=== PATIENT | female | born 1990 | race Caucasian/White ===

== ENCOUNTER 2016-05-18 00:05 | Observation (INO) | payer MEDICAID ==
[~2016-05-18 00:05] MED LIST: IBUP800T PO; IRON1TAB60 PO; ONDA4TAB10 PO; OXYC-302 PO; PREN1TAB52 PO; SENN8.6C2 PO
== END 2016-05-18 02:42 | disposition home or self-care (01) ==
LOC: LDOP 00:05 → LDIP 02:05
PROVIDERS: ADMIT Obstetrics & Gynecology; ATTEND Obstetrics & Gynecology
DX: O42.90 Premature rupture of membranes, unspecified as to length of time between rupture and onset of labor, unspecified weeks of gestation (principal); O26.899 Other specified pregnancy related conditions, unspecified trimester; M54.5 Low back pain; Z3A.00 Weeks of gestation of pregnancy not specified
CPT/HCPCS: 36415; 59025; 82731; 87086; 89060; G0378; 99211; G0463; Q0114

== ENCOUNTER 2016-07-30 17:05 | Outpatient (CLI) | payer MEDICAID ==
[~2016-07-30] VITALS: Ht 157.5 cm; Wt 161.0 kg
[2016-07-30 17:39] VITALS: BP 110/62
[2016-07-30 17:52] LABS: AMNI OBC PASS; AMNISURE NEGATIVE (NEGATIVE)
== END 2016-07-30 18:27 | disposition home or self-care (01) ==
LOC: LDOP 17:05
PROVIDERS: ATTEND Obstetrics & Gynecology
DX: O42.92 Full-term premature rupture of membranes, unspecified as to length of time between rupture and onset of labor (principal); O62.9 Abnormality of forces of labor, unspecified; Z3A.36 36 weeks gestation of pregnancy
CPT/HCPCS: 59025; 84112; 87081; 99211; G0463

== ENCOUNTER 2016-08-20 18:14 | Inpatient (IN) | payer MEDICAID ==
[~2016-08-20 18:14] MED LIST changes: +CEFAZOLIN 1,000 MG ONE; +EPHEDRINE 50 MG/ML, 1ML ONE; +ONDANSETRON 2MG/ML, 2ML ONE; +PHENYLEPHRINE 10 MG/ML ONE
[2016-08-20] MEDS ORDERED: LACTATED RINGERS 1,000 ML IV SCH ×2 (19:28→19:30)
[2016-08-20] MEDS ORDERED: OXYTOCIN 30U/ 0.9% NaCL 500ML 500 ML IV SCH (19:28)
[2016-08-20] MEDS ORDERED: LACTATED RINGERS 1,000 ML IVBOLUS ONE (19:30)
[2016-08-20] MEDS ORDERED: NEWBORN KIT ONE (19:47)
[2016-08-20] MEDS ORDERED: FENTANYL PF 100 MCG/2ML IV PRN (20:00)
[2016-08-20] MEDS: PLEASE ENTER HEIGHT AND WEIGHT MC SCH (20:00)
[2016-08-20] MEDS ORDERED: FENTANYL PF 100 MCG/2ML ONE ×2 (20:00→21:20)
[2016-08-20] MEDS: FENTANYL PF 100 MCG/2ML IVPush PRN ×2 (20:04→21:27)
[2016-08-20] MEDS ORDERED: SODIUM CITRATE/CITRIC ACID 30 ML UDC ONE (22:04)
[2016-08-20] MEDS ORDERED: METOCLOPRAMIDE 5 MG/ML, 2ML ONE (22:04)
[2016-08-20] MEDS ORDERED: MEPERIDINE/PF 50 MG/ML ONE ×2 (22:41→22:43)
[2016-08-20] MEDS ORDERED: MISOPROSTOL 200 MCG TABLET PR PRN (23:30)
[2016-08-20] MEDS ORDERED: METHYLERGONOVINE 0.2 MG/ML IM PRN (23:30)
[2016-08-20] MEDS ORDERED: ACETAMINOPHEN 325 MG TABLET PO PRN (23:30)
[2016-08-20] MEDS ORDERED: ONDANSETRON 2MG/ML, 2ML IV PRN (23:30)
[2016-08-20] MEDS ORDERED: CALCIUM CARBONATE 500 MG TAB.CHEW PO PRN (23:30)
[2016-08-20] MEDS ORDERED: CARBOPROST TROMETHAMINE 250 MCG/ML, 1ML IM PRN (23:30)
[2016-08-20] MEDS ORDERED: BISACODYL 10 MG SUPP PR PRN (23:30)
[2016-08-20] MEDS ORDERED: morphine SULFATE 10 MG/ML, 1ML IVPush PRN ×2 (23:30)
[2016-08-20] MEDS ORDERED: OXYTOCIN 30U/ 0.9% NaCL 500ML 500 ML ONE (23:30)
[2016-08-21] MEDS ORDERED: OXYcodone 5 MG/5 ML ORAL.SOL UDC ONE (01:12)
[2016-08-21] MEDS ORDERED: OXYcodone 5 MG/5 ML ORAL.SOL UDC PO PRN (01:14)
[2016-08-21 01:50] VITALS: BP 112/71
[2016-08-21] MEDS: OXYcodone/APAP 5/325MG TABLET PO PRN ×4 (02:18→18:10)
[2016-08-21] MEDS: LACTATED RINGERS 1,000 ML IV SCH ×7 (03:17→23:18)
[2016-08-21] MEDS: OXYTOCIN 30U/ 0.9% NaCL 500ML 500 ML IV SCH ×3 (03:18→19:18)
[2016-08-21] MEDS: PLEASE ENTER HEIGHT AND WEIGHT MC SCH (04:00)
[2016-08-21 05:25] VITALS: BP 103/67
[2016-08-21] MEDS ORDERED: PRENATAL VIT/IRON/FA 1 EACH TABLET ONE (07:44)
[2016-08-21] MEDS: DOCUSATE 100 MG CAPSULE PO PRN (07:49)
[2016-08-21] MEDS: IBUPROFEN 600 MG TABLET PO PRN ×2 (07:49→13:55)
[2016-08-21] MEDS: PRENATAL VIT/IRON/FA 1 EACH TABLET PO SCH (07:49)
[2016-08-21 07:50] VITALS: BP 116/72
[2016-08-21 12:00] VITALS: BP 96/58
[2016-08-21 16:00] VITALS: BP 94/50
[2016-08-21 19:30] VITALS: BP 105/68
[2016-08-22 00:35] VITALS: BP 135/75
[2016-08-22] MEDS: SIMETHICONE 80 MG CHEW TAB PO PRN ×2 (00:35→19:42)
[2016-08-22] MEDS: OXYcodone/APAP 5/325MG TABLET PO PRN ×4 (00:35→19:42)
[2016-08-22] MEDS: IBUPROFEN 600 MG TABLET PO PRN ×4 (00:35→21:24)
[2016-08-22] MEDS: DOCUSATE 100 MG CAPSULE PO PRN ×3 (00:35→19:42)
[2016-08-22] MEDS: LACTATED RINGERS 1,000 ML IV SCH ×5 (06:32→23:18)
[2016-08-22] MEDS: OXYTOCIN 30U/ 0.9% NaCL 500ML 500 ML IV SCH ×2 (06:32→15:18)
[2016-08-22 07:40] VITALS: BP 136/96
[2016-08-22] MEDS: PRENATAL VIT/IRON/FA 1 EACH TABLET PO SCH (07:43)
[2016-08-22 19:50] VITALS: BP 114/77
[2016-08-22] MEDS ORDERED: IBUP-1222 PO (23:44)
[2016-08-22] MEDS ORDERED: OXYC-302 PO (23:45)
[2016-08-23] MEDS: OXYTOCIN 30U/ 0.9% NaCL 500ML 500 ML IV SCH (01:18)
[2016-08-23] MEDS: LACTATED RINGERS 1,000 ML IV SCH ×2 (01:18→07:18)
[2016-08-23] MEDS: OXYcodone/APAP 5/325MG TABLET PO PRN ×2 (01:19→07:30)
[2016-08-23 06:40] VITALS: BP 96/65
[2016-08-23] MEDS: IBUPROFEN 600 MG TABLET PO PRN (07:30)
[2016-08-23] MEDS: DOCUSATE 100 MG CAPSULE PO PRN (07:30)
[2016-08-23] MEDS: PRENATAL VIT/IRON/FA 1 EACH TABLET PO SCH (07:30)
[2016-08-23] MEDS ORDERED: SENN8.6T4 PO (12:25)
== END 2016-08-23 19:00 | disposition home or self-care (01) | DRG 765 ==
LOC: LDOP 18:14 → LDIP 19:16 → 2NW 08-21 01:28
PROVIDERS: ADMIT Obstetrics & Gynecology; ATTEND Obstetrics & Gynecology
PROC: 10D00Z1 Extraction of Products of Conception, Low, Open Approach (ICD-10-PCS; principal; 2016-08-20)
DX: O34.211 Maternal care for low transverse scar from previous cesarean delivery (principal); O99.354 Diseases of the nervous system complicating childbirth; O41.00X0 Oligohydramnios, unspecified trimester, not applicable or unspecified; O77.0 Labor and delivery complicated by meconium in amniotic fluid; O69.81X0 Labor and delivery complicated by cord around neck, without compression, not applicable or unspecified; Z3A.38 38 weeks gestation of pregnancy; Z37.0 Single live birth; O99.344 Other mental disorders complicating childbirth; F41.9 Anxiety disorder, unspecified; F32.9 Major depressive disorder, single episode, unspecified; G47.00 Insomnia, unspecified
CPT/HCPCS: 36415; 82803; 85025; 86850; 86900; J0690; J2175; J2405; J3010; J2370; J2590; J7120

== ENCOUNTER 2017-04-20 00:20 | Emergency (ER) | payer MEDICAID ==
[~2017-04-20] VITALS: Ht 162.6 cm; Wt 64.5 kg
[~2017-04-20 00:20] MED LIST changes: -CEFAZOLIN 1,000 MG ONE; -EPHEDRINE 50 MG/ML, 1ML ONE; +IBUP-1222 PO; +IBUP-1223 PO; -IBUP800T PO; -ONDANSETRON 2MG/ML, 2ML ONE; -PHENYLEPHRINE 10 MG/ML ONE; +SENN-87 PO
[2017-04-20] MEDS ORDERED: ACETAMINOPHEN 325 MG TABLET ONE (00:30)
[2017-04-20] MEDS ORDERED: IBUPROFEN 200 MG TABLET ONE (00:30)
[2017-04-20] MEDS ORDERED: IBUPROFEN 200 MG TABLET PO ONE (01:00)
[2017-04-20] MEDS ORDERED: ACETAMINOPHEN 325 MG TABLET PO ONE (01:00)
[2017-04-20 01:02] LABS: RAPID INFLUENZA A Negative (Negative); RAPID INFLUENZA B Negative (Negative)
[2017-04-20] MEDS ORDERED: ONDANSETRON 2MG/ML, 2ML ONE (01:37)
[2017-04-20] MEDS ORDERED: SODIUM CHLORIDE 0.9% 1,000ML IVBOLUS ONE (02:00)
[2017-04-20] MEDS ORDERED: SODIUM CHLORIDE FLUSH 10ML SYR IVF ONE (02:00)
[2017-04-20] MEDS ORDERED: ONDANSETRON 2MG/ML, 2ML IVPush ONE (02:00)
[2017-04-20 02:06] LABS: BASOPHILS # (AUTO) 0.02 x10^3/uL (0-0.1); BASOPHILS % (AUTO) 0 % (0-1); EOSINOPHILS # (AUTO) 0.02 x10^3/uL (0-0.4); EOSINOPHILS % (AUTO) 0 % (1-7); LYMPHOCYTES # (AUTO) 0.73 x10^3/uL (1-3.4); LYMPHOCYTES % (AUTO) 9 % (22-44); MD NO; MEAN CORPUSCULAR HEMOGLOBIN 29.2 pg (27.0-34.8); MEAN CORPUSCULAR HGB CONC 33.5 g/dL (32.4-35.8); MEAN CORPUSCULAR VOLUME 87.2 fL (80-100); MEAN PLATELET VOLUME 7.7 fL (7.4-10.4); MONOCYTES # (AUTO) 0.84 x10^3/uL (0.2-0.8); MONOCYTES % (AUTO) 10 % (2-9); NEUTROPHILS % (AUTO) 81 % (42-75); PLATELET COUNT 266 x10^3/uL (130-400); RED BLOOD COUNT 4.21 x10^6/uL (3.82-5.3); RED CELL DISTRIBUTION WIDTH 12.6 % (9.6-15.2)
[2017-04-20 02:07] VITALS: BP 97/49
[2017-04-20 02:15] LABS: ALBUMIN 3.6 g/dL (3.4-5.0); ANION GAP 10 mmol/L (5-15); CALCIUM 8.1 mg/dL (8.5-10.1); CHLORIDE 106 mmol/L (98-107)
[2017-04-20 02:22] LABS: ALANINE AMINOTRANSFERASE 20 U/L (12-78); ALKALINE PHOSPHATASE 96 U/L (45-117); BILIRUBIN,TOTAL 0.2 mg/dL (0.2-1.0); TOTAL PROTEIN 7.6 g/dL (6.4-8.2)
[2017-04-20 03:00] LABS: MICROSCOPIC AUTO
[2017-04-20 03:02] LABS: CULTURE INDICATED? YES
== END 2017-04-20 03:53 | disposition home or self-care (01) ==
LOC: ED 02:20
DX: B34.9 Viral infection, unspecified (principal)
CPT/HCPCS: 36415; 71046; 80053; 81001; 84145; 84703; 85025; 87081; 87086; 87400; 87880; 96361; 96374; 99285; J2405; J7030

== ENCOUNTER 2017-06-19 15:45 | Emergency (ER) | payer BC, MEDICAID ==
[~2017-06-19] VITALS: Ht 157.5 cm; Wt 61.3 kg
[2017-06-19] MEDS ORDERED: PHENAZOPYRIDINE 200 MG TABLET PO ONE (16:30)
[2017-06-19 16:31] LABS: BASOPHILS # (AUTO) 0.03 x10^3/uL (0-0.1); BASOPHILS % (AUTO) 0 % (0-1); EOSINOPHILS # (AUTO) 0.27 x10^3/uL (0-0.4); EOSINOPHILS % (AUTO) 3 % (1-7); LYMPHOCYTES # (AUTO) 1.77 x10^3/uL (1-3.4); LYMPHOCYTES % (AUTO) 20 % (22-44); MD NO; MEAN CORPUSCULAR HEMOGLOBIN 29.6 pg (27.0-34.8); MEAN CORPUSCULAR HGB CONC 33.5 g/dL (32.4-35.8); MEAN CORPUSCULAR VOLUME 88.3 fL (80-100); MEAN PLATELET VOLUME 7.5 fL (7.4-10.4); MONOCYTES # (AUTO) 0.59 x10^3/uL (0.2-0.8); MONOCYTES % (AUTO) 7 % (2-9); NEUTROPHILS # (AUTO) 6.14 x10^3/uL (1.8-6.8); NEUTROPHILS % (AUTO) 70 % (42-75); PLATELET COUNT 326 x10^3/uL (130-400); RED BLOOD COUNT 4.29 x10^6/uL (3.82-5.3); RED CELL DISTRIBUTION WIDTH 13.9 % (9.6-15.2)
[2017-06-19 16:38] LABS: ANION GAP 6 mmol/L (5-15); CALCIUM 8.8 mg/dL (8.5-10.1); CHLORIDE 107 mmol/L (98-107)
[2017-06-19 16:44] LABS: CREATININE 0.97 mg/dL (0.55-1.02)
[2017-06-19 17:41] LABS: CULTURE INDICATED? YES; MICROSCOPIC INDICATED
[2017-06-19] MEDS ORDERED: PHENAZOPYRIDINE 200 MG TABLET ONE (17:46)
[2017-06-19 17:52] VITALS: BP 102/66
== END 2017-06-19 18:44 | disposition home or self-care (01) ==
LOC: ED 18:30
DX: N30.00 Acute cystitis without hematuria (principal); N10 Acute pyelonephritis
CPT/HCPCS: 36415; 80048; 81001; 82040; 84703; 85025; 87077; 87086; 99284

== ENCOUNTER 2018-01-13 08:58 | Emergency (ER) | payer BC, MEDICAID ==
[~2018-01-13] VITALS: Ht 160 cm; Wt 69.4 kg
[2018-01-13 09:32] LABS: BASOPHILS # (AUTO) 0.02 x10^3/uL (0-0.1); BASOPHILS % (AUTO) 0 % (0-1); EOSINOPHILS # (AUTO) 0.39 x10^3/uL (0-0.4); EOSINOPHILS % (AUTO) 6 % (1-7); LYMPHOCYTES # (AUTO) 1.43 x10^3/uL (1-3.4); LYMPHOCYTES % (AUTO) 21 % (22-44); MD NO; MEAN CORPUSCULAR HEMOGLOBIN 29.8 pg (27.0-34.8); MEAN CORPUSCULAR HGB CONC 33.9 g/dL (32.4-35.8); MEAN CORPUSCULAR VOLUME 87.8 fL (80-100); MEAN PLATELET VOLUME 7.5 fL (7.4-10.4); MONOCYTES % (AUTO) 7 % (2-9); NEUTROPHILS # (AUTO) 4.53 x10^3/uL (1.8-6.8); NEUTROPHILS % (AUTO) 66 % (42-75); PLATELET COUNT 347 x10^3/uL (130-400); RED BLOOD COUNT 4.28 x10^6/uL (3.82-5.3); RED CELL DISTRIBUTION WIDTH 13.1 % (9.6-15.2)
[2018-01-13 09:46] LABS: ALANINE AMINOTRANSFERASE 28 U/L (12-78); ALBUMIN 3.6 g/dL (3.4-5.0); ANION GAP 8 mmol/L (5-15); CALCIUM 8.6 mg/dL (8.5-10.1); CHLORIDE 107 mmol/L (98-107)
[2018-01-13 09:48] LABS: ALKALINE PHOSPHATASE 76 U/L (45-117); BILIRUBIN,TOTAL 0.3 mg/dL (0.2-1.0); TOTAL PROTEIN 7.3 g/dL (6.4-8.2)
[2018-01-13] MEDS ORDERED: ACETAMINOPHEN 500 MG TABLET PO ONE (10:00)
[2018-01-13] MEDS ORDERED: ACETAMINOPHEN 500 MG TABLET ONE (10:01)
[2018-01-13 10:02] LABS: MICROSCOPIC AUTO
[2018-01-13 10:03] LABS: CULTURE INDICATED? YES
[2018-01-13 12:23] VITALS: BP 109/72
== END 2018-01-13 12:24 | disposition home or self-care (01) ==
LOC: ED 09:52
DX: N30.00 Acute cystitis without hematuria (principal)
CPT/HCPCS: 36415; 74176; 80053; 81001; 81025; 83690; 85025; 87086; 99285

== ENCOUNTER 2018-05-19 11:37 | Emergency (ER) | payer MEDICAID ==
[~2018-05-19] VITALS: Ht 160 cm; Wt 68.0 kg
[~2018-05-19 11:37] MED LIST changes: -SENN-87 PO; +SENN-88 PO
--- NOTE | 2018-05-19 12:06 | NUR ---
ED MD at bedside. [employer] computer being turned on. Per pt's family member translating for pt at this time, "She has been having constant pain in her lower abdomen. She has had nausea. She has pain in her lower back (left flank). Her last cycle was 2 weeks ago." Pt denies vomitting, diarrhea, vaginal bleeding, vaginal discharge. Pt denies urinary frequency, pain with urination, burning with urination. Pt took a test at home and it was negative. CODY. Pt resting on [facility]. All safety measures in place.
--- NOTE | 2018-05-19 12:21 | NUR ---
Pt ambulates to restroom with steady gait and balance.
[2018-05-19] MEDS ORDERED: MORPHINE SULFATE 4 MG/ML, 1ML ONE (12:22)
[2018-05-19] MEDS ORDERED: ONDANSETRON 2MG/ML, 2ML ONE (12:22)
[2018-05-19] MEDS ORDERED: KETOROLAC 30 MG/1 ML ONE (12:22)
[2018-05-19] MEDS ORDERED: KETOROLAC 30 MG/1 ML IVPush ONE (12:30)
[2018-05-19] MEDS ORDERED: ONDANSETRON 2MG/ML, 2ML IVPush ONE (12:30)
[2018-05-19] MEDS ORDERED: MORPHINE SULFATE 4 MG/ML, 1ML IVPush PRN (12:30)
[2018-05-19 12:43] LABS: BASOPHILS # (AUTO) 0.02 x10^3/uL (0-0.1); BASOPHILS % (AUTO) 0 % (0-1); EOSINOPHILS # (AUTO) 0.19 x10^3/uL (0-0.4); EOSINOPHILS % (AUTO) 3 % (1-7); LYMPHOCYTES # (AUTO) 1.58 x10^3/uL (1-3.4); LYMPHOCYTES % (AUTO) 22 % (22-44); MD NO; MEAN CORPUSCULAR HGB CONC 33.8 g/dL (32.4-35.8); MEAN CORPUSCULAR VOLUME 82.8 fL (80-100); MEAN PLATELET VOLUME 7.8 fL (7.4-10.4); MONOCYTES # (AUTO) 0.41 x10^3/uL (0.2-0.8); MONOCYTES % (AUTO) 6 % (2-9); NEUTROPHILS # (AUTO) 5.07 x10^3/uL (1.8-6.8); NEUTROPHILS % (AUTO) 70 % (42-75); PLATELET COUNT 360 x10^3/uL (130-400); RED BLOOD COUNT 4.47 x10^6/uL (3.82-5.3); RED CELL DISTRIBUTION WIDTH 13.6 % (9.6-15.2)
[2018-05-19 12:44] LABS: MICROSCOPIC NOT IND
[2018-05-19 12:47] LABS: CULTURE INDICATED? NO
--- NOTE | 2018-05-19 12:48 | NUR ---
BREAK RN: PT MEDICATED ORDERED FOR 610 ABD PAIN. PT REPORTS SANCHEZ AFTER BEING GIVEN MORPHINE. ARLENE COLLINS MADE AWARE. PT WAS MEDICATED WITH TORADOL WELL WHICH SHOULD HELP WITH SANCHEZ PER ARLENE COLLINS. PT ON CONT BP AND O2 MONITORS. AT BEDSIDE. PT AND AWARE WE ARE WAITING FOR LAB/IMAGING RESULTS. CALL LIGHT WITHIN REACH. WILL CONT TO MONITOR PT.
[2018-05-19 12:52] LABS: ALANINE AMINOTRANSFERASE 40 U/L (12-78); ALBUMIN 3.6 g/dL (3.4-5.0); ANION GAP 5 mmol/L (5-15); CALCIUM 8.5 mg/dL (8.5-10.1); CHLORIDE 108 mmol/L (98-107); CREATININE 0.65 mg/dL (0.55-1.02)
[2018-05-19 12:58] LABS: ALKALINE PHOSPHATASE 81 U/L (45-117); BILIRUBIN,TOTAL 0.2 mg/dL (0.2-1.0); TOTAL PROTEIN 7.2 g/dL (6.4-8.2)
--- NOTE | 2018-05-19 13:13 | NUR ---
Pt transported on gurney to ultrasound.
[2018-05-19 13:47] VITALS: BP 96/43
--- NOTE | 2018-05-19 13:48 | NUR ---
Pt resting on [facility] asleep. Pt connected to all monitors. NADN. All safety measures in place. No needs expressed. Pt transported to [facility] on [facility] at this time.
[2018-05-19] MEDS ORDERED: OMNIPAQUE 350 MG/ML, 100ML BOTTLE ONE (14:07)
--- NOTE | 2018-05-19 15:12 | NUR ---
Patient given discharge instructions and they have confirmed that they understand the instructions. Patient ambulatory with steady gait. Pt left with prescription, discharge paperwork, work note, and all personal belongings.
== END 2018-05-19 15:16 | disposition home or self-care (01) ==
LOC: ED 12:19
DX: R10.2 Pelvic and perineal pain (principal); M54.5 Low back pain
CPT/HCPCS: 36415; 74177; 76830; 80053; 81003; 84703; 85025; 96374; 96375; 99284; J1885; J2405; Q9967